=== PATIENT | female | born 1955 | race African-American/Black ===

== ENCOUNTER 2022-04-10 16:16 | Emergency (ER) | payer MEDICARE, MEDICAID ==
[~2022-04-10] VITALS: Ht 167.6 cm; Wt 72.0 kg
[2022-04-10] MEDS ORDERED: LABETALOL 5MG/ML SYR 20 MG/4 ML SYRINGE IV ONE (16:45)
[2022-04-10 17:27] LABS: BASOPHILS % 0.5 % (0.0-2.0); EOSINOPHILS % 1.1 % (0.0-5.0); HEMATOCRIT. 47.9 % (36.0-48.0); HEMOGLOBIN. 16.1 g/dL (12.0-16.0); LYMPHOCYTES % 37.2 % (20.0-50.0); MEAN CORPUSCULAR HEMOGLOBIN 31.9 pg (28.0-32.0); MEAN CORPUSCULAR VOLUME 94.7 fL (81.0-99.0); MEAN PLATELET VOLUME 10.7 fl (7.4-10.4); MONOCYTES % 6.7 % (2.0-8.0); NEUTROPHILS % 54.5 % (40.0-76.0); PLATELET 186 x1000/uL (130-400); RED BLOOD CELL COUNT 5.06 mill/uL (4.2-5.4); RED CELL DISTRIBUTION WIDTH 13.1 % (11.6-14.6)
[2022-04-10 18:07] LABS: CHLORIDE 104 mEq/L (98-107)
[2022-04-10 18:20] VITALS: BP 161/89
[2022-04-10] MEDS ORDERED: LISI20TA31 MT (18:32)
== END 2022-04-10 19:09 | disposition home or self-care (01) ==
LOC: ER 16:16
DX: R51.9 Headache, unspecified (principal); I10 Essential (primary) hypertension; Z76.0 Encounter for issue of repeat prescription
CPT/HCPCS: 36415; 80053; 85025; 96374; 99283; J3490

== ENCOUNTER 2022-04-12 16:27 | Emergency (ER) | payer MEDICARE, MEDICAID ==
[~2022-04-12] VITALS: Ht 160 cm; Wt 86.0 kg
[~2022-04-12 16:27] MED LIST: LISI20TA31 MT
[2022-04-12 18:49] LABS: BASOPHILS % 0.7 % (0.0-2.0); EOSINOPHILS % 1.5 % (0.0-5.0); HEMATOCRIT. 44.2 % (36.0-48.0); HEMOGLOBIN. 14.8 g/dL (12.0-16.0); LYMPHOCYTES % 36.9 % (20.0-50.0); MEAN CORPUSCULAR HEMOGLOBIN 32.1 pg (28.0-32.0); MEAN CORPUSCULAR VOLUME 95.9 fL (81.0-99.0); MEAN PLATELET VOLUME 10.2 fl (7.4-10.4); MONOCYTES % 5.9 % (2.0-8.0); PLATELET 193 x1000/uL (130-400); RED CELL DISTRIBUTION WIDTH 13.3 % (11.6-14.6)
[2022-04-12 18:59] LABS: CHLORIDE 107 mEq/L (98-107)
[2022-04-12] MEDS ORDERED: CLONIDINE 0.2MG TABLET PO ONE (20:30)
[2022-04-12 21:51] VITALS: BP 209/90
== END 2022-04-12 21:53 | disposition home or self-care (01) ==
LOC: ER 16:27
DX: I10 Essential (primary) hypertension (principal); I63.81 Other cerebral infarction due to occlusion or stenosis of small artery; H26.9 Unspecified cataract
CPT/HCPCS: 36415; 71045; 80053; 83880; 84484; 85025; 99285

== ENCOUNTER 2023-07-18 18:23 | Emergency (ER) | payer MEDICARE, MEDICAID ==
[~2023-07-18] VITALS: Ht 162.6 cm; Wt 100.0 kg
[~2023-07-18 18:23] MED LIST changes: +AMLO5TAB88 PO; +ASPI-1406 PO; +CLOP75TA15 PO; +LIP40 PO; -LISI20TA31 MT; +LOSA-412 PO
[2023-07-18 18:31] VITALS: O2SAT 0
[2023-07-18 18:40] VITALS: BP 0/0; PULSE 0; RESP 0; TEMP 98.6
== END 2023-07-18 18:40 ==
LOC: ER 18:23
DX: I46.9 Cardiac arrest, cause unspecified (principal); I11.0 Hypertensive heart disease with heart failure; I50.810 Right heart failure, unspecified
CPT/HCPCS: 82962; 92950; 99291